=== PATIENT | male | born 1985 | race Caucasian/White ===

== ENCOUNTER 2017-02-22 08:25 | Emergency (ER) | payer OTHER ==
[~2017-02-22] VITALS: Ht 177.8 cm; Wt 88.6 kg
[2017-02-22] MEDS ORDERED: NS 1,000 ML IV ONE (09:45)
[2017-02-22 10:33] LABS: ALBUMIN/GLOBULIN RATIO 1.21 (1.00-1.93); ALKALINE PHOSPHATASE 40 U/L (45-117); ALT/SGPT 16 U/L (12-78); AMYLASE 39 U/L (25-115); ANION GAP 4 MEQ/L (8-16); AST/SGOT 12 U/L (15-37); BILIRUBIN,DIRECT 0.3 MG/DL (0.0-0.2); BILIRUBIN,TOTAL 2.6 MG/DL (0.2-1.0); BLOOD UREA NITROGEN 13 MG/DL (7-18); CALCIUM LEVEL 8.9 MG/DL (8.5-10.1); CARBON DIOXIDE LEVEL 33 MEQ/L (21-32); CHLORIDE LEVEL 100 MEQ/L (98-107); CREATININE FOR GFR 1.02 MG/DL (0.70-1.30); GLOMERULAR FILTRATION RATE > 60.0 (>60); GLUCOSE, FASTING 91 MG/DL (70-105); POTASSIUM SERUM 4.2 MEQ/L (3.5-5.1); SODIUM LEVEL 137 MEQ/L (136-145); TOTAL PROTEIN 7.3 GM/DL (6.4-8.2)
[2017-02-22 10:39] LABS: WHITE BLOOD COUNT 14.9 K/mm3 (4.0-10.0)
[2017-02-22 10:40] LABS: BASO % 0.2 % (0.0-1.0); EOS # 0.1 K/mm3 (0.0-0.50); EOS % 0.9 % (0.0-3.0); LARGE UNSTAINED CELL % 0.7 % (0.0-4.0); LYMPH # 1.4 K/mm3 (1.5-4.5); LYMPH % 9.2 % (24.0-44.0); MEAN CORPUSCULAR HEMOGLOBIN 30.7 pg (27.0-33.0); MEAN CORPUSCULAR HGB CONC 35.6 g/dl (32.0-36.5); MEAN CORPUSCULAR VOLUME 86.2 fl (80.0-96.0); MONO % 6.4 % (0.0-5.0); NEUTROPHILS # 12.3 K/mm3 (1.8-7.7); NEUTROPHILS % 82.7 % (36.0-66.0); PLATELET COUNT, AUTOMATED 123 k/mm3 (150-450); RED CELL DISTRIBUTION WIDTH 12.7 % (11.5-14.5)
[2017-02-22 10:41] LABS: ADD MANUAL DIFFER NO; DIFF SLIDE NUMBER 143; LARGE UNSTAINED CELL # 0.1 K/mm3 (0.0-0.4)
[2017-02-22] MEDS ORDERED: ISOVUE-370 76% 100ML VIAL (Q9967) As Ordered ONE (10:59)
[2017-02-22] MEDS ORDERED: ONDANSETRON 4MG/2ML VIAL (J2405) IV ONE (11:30)
[2017-02-22] MEDS ORDERED: MORPHINE 4 MG/ML 1ML SYRINGE IV ONE (11:30)
--- NOTE | 2017-02-22 12:12 | REP ---
CT of the abdomen and pelvis with IV contrast, without bowel contrast: There are no comparisons. The visualized lung martinez are unremarkable. The hepatic parenchyma, gallbladder, pancreas and spleen are unremarkable. The adrenals are unremarkable. There are several small renal cortical cysts bilaterally. The kidneys are otherwise unremarkable. No renal calculi. There is no hydronephrosis. The abdominal aorta is unremarkable. There is no bowel distension or obstruction. Pelvis: The appendix has a normal appearance. There is no ascites or adenopathy. There is wall thickening of the sigmoid colon, descending colon and transverse colon compatible with colitis in the appropriate clinical setting. Impression: The appendix has a normal appearance. The gallbladder and pancreas are unremarkable. There is no hydronephrosis or renal calculus. There are small renal cysts bilaterally. There is colonic wall thickening compatible with colitis in the appropriate clinical setting. Signed by Tim Anderson MD 02/22/2017 12:04 P
[2017-02-22] MEDS ORDERED: CIPROFLOXACIN 500 MG TAB PO ONE (12:45)
[2017-02-22] MEDS ORDERED: ZOFR4TAB3 PO (12:45)
[2017-02-22] MEDS ORDERED: NORCOTAB PO (12:45)
[2017-02-22] MEDS ORDERED: FLAG500T PO (12:45)
[2017-02-22] MEDS ORDERED: CIPR-249 PO (12:45)
[2017-02-22] MEDS ORDERED: metroNIDAZOLE (FLAGYL) 500 MG TAB PO ONE (12:45)
[2017-02-22 12:54] VITALS: BP 133/77
== END 2017-02-22 12:56 | disposition home or self-care (01) ==
LOC: M ED 08:25
DX: K52.9 Noninfective gastroenteritis and colitis, unspecified (principal)
CPT/HCPCS: 74177; 80048; 80076; 82150; 83690; 85025; 87507; 96361; 96374; 96375; 99283; J2405; Q9967